=== PATIENT | female | born 1960 | race Caucasian/White ===

== ENCOUNTER → 2019-05-21 | Outpatient (CLI) | payer BC ==
[~2019-05-21] MED LIST: DOCU100 PO; HYDCHL25 PO; HYDR1TAB94 PO; IBUP800 PO; LOSA25 PO; LOSA50 PO; OMEP20ER PO
== END | disposition home or self-care (01) ==
LOC: PLD 12:07 → LAB SHORT 12:07
DX: D23.39 Other benign neoplasm of skin of other parts of face (principal)
CPT/HCPCS: 88305

== ENCOUNTER 2019-11-16 17:49 | Emergency (ER) | payer BC ==
[~2019-11-16] VITALS: Ht 170.2 cm; Wt 86.2 kg
[2019-11-16] MEDS ORDERED: LOSARTAN-HCTZ1 EAC4 PO (18:08)
== END 2019-11-16 19:03 | disposition home or self-care (01) ==
LOC: ER 17:49
DX: S80.12XA Contusion of left lower leg, initial encounter (principal); Z79.899 Other long term (current) drug therapy; W01.0XXA Fall on same level from slipping, tripping and stumbling without subsequent striking against object, initial encounter
CPT/HCPCS: 73590; 99283-25; A9270; A9270-GY

== ENCOUNTER → 2021-09-06 | Outpatient (CLI) | payer BC ==
[~2021-09-06] MED LIST changes: +LOSARTAN-HCTZ1 EAC4 PO
== END | disposition home or self-care (01) ==
LOC: LAB SHORT 13:44
DX: L72.0 Epidermal cyst (principal)
CPT/HCPCS: 88304

== ENCOUNTER → 2023-10-22 | Outpatient (CLI) | payer OTHER ==
[2023-10-22 19:21] LABS: Bun/Creatinine Ratio 21.4 (12.0-20.0); Calcium, Blood 9.5 mg/dL (8.5-10.1); Creatinine, Blood 0.61 mg/dL (0.40-1.00); Potassium, Blood 4.3 mmol/L (3.5-5.5)
== END ==
LOC: LAB 11:30 → LAB SHORT 11:30
PROVIDERS: Hospitalist
DX: I10 Essential (primary) hypertension (principal)
CPT/HCPCS: 80048

== ENCOUNTER 2023-11-28 07:12 | Day surgery (SDC) | payer OTHER ==
[~2023-11-28] VITALS: Ht 170.2 cm; Wt 87.9 kg
[~2023-11-28 07:12] MED LIST changes: +Balanced Salt Epinephrine Irrigation Solution 500 mL IR SCH; +Lidocaine HCl/Pf 1% 5 ML VIAL ONE; +Lidocaine HCl/Pf 1% 5 ML VIAL XX SCH; +Moxifloxacin HCL 0.5 MG/0.1 ML 0.4MLSYR RIGHTEYE SCH; +NS 500 ML IV ONE; +PHENYLEPHRINE\\TROPICAMIDE\\TETRACAINE OPHTHALMIC DILATING SOLN RIGHTEYE PRN; +Povidone-Iodine 450 DROP/30 ML Solution ONE; +Povidone-Iodine 450 DROP/30 ML Solution RIGHTEYE SCH
[2023-11-28] MEDS ORDERED: NS 500 ML IV ONE (07:36)
[2023-11-28] MEDS ORDERED: LOSA25 PO (07:39)
[2023-11-28] MEDS ORDERED: FentaNYL Citrate 50 MCG/ML 2 ML Injection ONE (07:43)
[2023-11-28] MEDS ORDERED: Midazolam HCl 1MG / ML 2ML Vial ONE (07:43)
[2023-11-28] MEDS ORDERED: Tetracaine HCl 0.5% Opth Soln 15 ml RIGHTEYE ONE (08:33)
[2023-11-28 08:56] VITALS: BP 129/89
== END 2023-11-28 09:14 | disposition home or self-care (01) ==
LOC: ORSCSDS 07:12
PROVIDERS: Student in an Organized Health Care Education/Training Program
PROC: 08RJ3JZ Replacement of Right Lens with Synthetic Substitute, Percutaneous Approach (ICD-10-PCS; principal; 2023-11-28 08:30)
DX: H25.13 Age-related nuclear cataract, bilateral (principal); I10 Essential (primary) hypertension; Z79.899 Other long term (current) drug therapy
CPT/HCPCS: J2001; J2250; J3010; J7040; V2632

== ENCOUNTER 2023-12-04 07:09 | Day surgery (SDC) | payer OTHER ==
[~2023-12-04] VITALS: Ht 170.2 cm; Wt 87.1 kg
[~2023-12-04 07:09] MED LIST changes: +Moxifloxacin HCL 0.5 MG/0.1 ML 0.4MLSYR LEFTEYE SCH; -Moxifloxacin HCL 0.5 MG/0.1 ML 0.4MLSYR RIGHTEYE SCH; +PHENYLEPHRINE\\TROPICAMIDE\\TETRACAINE OPHTHALMIC DILATING SOLN LEFTEYE PRN; -PHENYLEPHRINE\\TROPICAMIDE\\TETRACAINE OPHTHALMIC DILATING SOLN RIGHTEYE PRN; +Povidone-Iodine 450 DROP/30 ML Solution LEFTEYE SCH; -Povidone-Iodine 450 DROP/30 ML Solution RIGHTEYE SCH
[2023-12-04] MEDS ORDERED: NS 500 ML IV ONE (07:43)
--- NOTE | 2023-12-04 07:44 | NUR ---
12/04/23 0744 Lo Weir CALL LIGHT WITHIN REACH. TETRACAINE IN AT 0743 IN LEFT EYE AND PLEDGETT IN AT 0745
[2023-12-04] MEDS ORDERED: Midazolam HCl 1MG / ML 2ML Vial ONE (08:05)
[2023-12-04] MEDS ORDERED: FentaNYL Citrate 50 MCG/ML 2 ML Injection ONE (08:05)
[2023-12-04] MEDS ORDERED: Tetracaine HCl 0.5% Opth Soln 15 ml LEFTEYE ONE (08:31)
[2023-12-04 08:59] VITALS: BP 103/68
--- NOTE | 2023-12-04 14:38 | NUR ---
12/04/23 1438 Kyra Salguero SURGICAL SITE PREPPED BY IVAN BHAT - MEDICAL ENGINEER TRAVELER
== END 2023-12-04 09:25 | disposition home or self-care (01) ==
LOC: ORSCSDS 07:09
PROVIDERS: Student in an Organized Health Care Education/Training Program
PROC: 08RK3JZ Replacement of Left Lens with Synthetic Substitute, Percutaneous Approach (ICD-10-PCS; principal; 2023-12-04 08:30)
DX: H25.12 Age-related nuclear cataract, left eye (principal); Z96.1 Presence of intraocular lens; I10 Essential (primary) hypertension; Z79.899 Other long term (current) drug therapy
CPT/HCPCS: J2001; J2250; J3010; J7040; V2632

== ENCOUNTER → 2025-03-09 | Outpatient (CLI) | payer OTHER ==
[~2025-03-09] MED LIST changes: -Balanced Salt Epinephrine Irrigation Solution 500 mL IR SCH; -Lidocaine HCl/Pf 1% 5 ML VIAL ONE; -Lidocaine HCl/Pf 1% 5 ML VIAL XX SCH; -Moxifloxacin HCL 0.5 MG/0.1 ML 0.4MLSYR LEFTEYE SCH; -NS 500 ML IV ONE; -PHENYLEPHRINE\\TROPICAMIDE\\TETRACAINE OPHTHALMIC DILATING SOLN LEFTEYE PRN; -Povidone-Iodine 450 DROP/30 ML Solution LEFTEYE SCH; -Povidone-Iodine 450 DROP/30 ML Solution ONE
== END | disposition home or self-care (01) ==
LOC: LAB SHORT 20:01 → LAB 20:01
DX: N39.0 Urinary tract infection, site not specified (principal)
CPT/HCPCS: 87077; 87086; 87186